=== PATIENT | female | born 1940 | race Caucasian/White ===

== ENCOUNTER 2016-08-28 17:43 | Emergency (ER) | payer MEDICARE, BC ==
--- NOTE | 2016-09-02 19:22 | ER ---
ADMIT: 08/28/2016 RM/LOC: ER [facility] MR#: [id number] [address] [id number] JUAN LITA Nicola [address] [place] [address] [place] [address] Emergency Room Report SEX: F AGE: 75 : 1940 DATE: 08/28/2016 The patient is a 75-year-old female, in town for brother's , complains of acute onset shortness of breath associated with non-productive cough. Exam remarkable for nontoxic, afebrile female with audible wheeze. Responded well to DuoNeb aerosol, Decadron IV push. Home with doxycycline 100 mg b.i.d. x7 days, albuterol MDI as needed, prednisone 40 mg daily x5 days. Discontinue smoking. Follow up with Dr. Veronica or local physician as needed. Slick Ott MD/ brandi JOB #: [id number] CC: Jaxson Harris MD, Attending Physician Jaxson Chapman MD, Family Physician Vi Veronica MD
== END 2016-08-28 19:20 | disposition home or self-care (01) ==
LOC: ER 17:43
DX: J44.9 Chronic obstructive pulmonary disease, unspecified (principal); F17.210 Nicotine dependence, cigarettes, uncomplicated; Z90.710 Acquired absence of both cervix and uterus; Z88.0 Allergy status to penicillin; Z79.51 Long term (current) use of inhaled steroids